=== PATIENT | male | born 2000 | race Caucasian/White ===

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

== ENCOUNTER → 2021-06-03 | Outpatient (REF) | payer OTHER | LOC: M WUC 20:09 | PROVIDERS: ATTEND Physician Assistant | DX: J02.9 Acute pharyngitis, unspecified (principal) ==

== ENCOUNTER 2021-08-08 17:36 | Emergency (ER) | payer BC, OTHER ==
[~2021-08-08] VITALS: Ht 177.8 cm; Wt 88.7 kg
[2021-08-08 17:37] VITALS: BP 145/86
--- OUTSIDE RECORDS SUMMARY | 2021-08-08 17:45 | CCD | Continuity of Care Document ---
Author Author Omar MUNGUIA Organization Unknown Address [address] [place] [address] Phone [phone] Problems Description No Information Available Social History Type Date Description Comments Sex Unknown ETOH Use Rarely consumes alcohol Tobacco Use Start: Unknown daily marijuana smoker Tobacco Use Start: Unknown Patient Currently Vapes 5% Allergies, Adverse Reactions, Alerts Description No Known Drug Allergies Medications Description No Active Medications Immunizations Description No Information Available Vital Signs Date Vital Result Comment 06/03/2021 1:40pm BP Systolic 111 mmHg BP Diastolic 64 mmHg Heart Rate 62 /min Respiratory Rate 14 /min O2 % BldC Oximetry 98 % Body Temperature 98.0 F Weight 195.00 lb Height 72 inches 6'0" BMI (Body Mass Index) 26.4 kg/m2 Pain Level 0 Results Test Acquired Date Facility Test Result H/L Range Note Laboratory test finding 06/03/2021 [facility] [address] [place] [address] [id number] [phone] Throat Culture <pending> Procedures Date Code Description Status 06/03/2021 [address]649 Office/Outpatient [facility] 30 -44 Minutes Completed Medical Devices Description No Information Available Encounters Type Date Location Provider Dx Diagnosis Office Visit 06/03/2021 1:00p Main Office NATALIE Brown J02 .9 Acute pharyngitis, unspecified Assessments Date Code Description Provider 06/03/2021 J02.9 Acute pharyngitis, unspecified M NATALIE Lopez Plan of Treatment No Information Available Functional Status Description No Information Available Mental Status Description No Information Available Referrals Description No Information Available
--- OUTSIDE RECORDS SUMMARY | 2021-08-08 17:45 | CCD ---
Author Author [facility] Organization [facility] Address Unknown Phone Unavailable Care Team Providers Care Food Safety Officer Name Role Phone Miladys DESAI MD Unavailable Unavailable Miladys DESAI MD Unavailable Unavailable Miladys DESAI MD Unavailable Unavailable Miladys DESAI MD Unavailable Unavailable Miladys DESAI MD Unavailable Unavailable Miladys DESAI MD Unavailable Unavailable Miladys DESAI MD Unavailable Unavailable Miladys DESAI MD Unavailable Unavailable Miladys DESAI MD Unavailable Unavailable Miladys DESAI MD Unavailable Unavailable Miladys DESAI MD Unavailable Unavailable Miladys DESAI MD Unavailable Unavailable Miladys DESAI MD Unavailable Unavailable Miladys DESAI MD Unavailable Unavailable Miladys DESAI MD Unavailable Unavailable Miladys DESAI MD Unavailable Unavailable Miladys DESAI MD Unavailable Unavailable Miladys DESAI MD Unavailable Unavailable Miladys DESAI MD Unavailable Unavailable Miladys DESAI MD Unavailable Unavailable Miladys DESAI MD Unavailable Unavailable Miladys DESAI MD Unavailable Unavailable Miladys DESAI MD Unavailable Unavailable Miladys DESAI MD Unavailable Unavailable LETTIERE, A DAR PA Unavailable Unavailable LETTIERE, A DAR PA Unavailable Unavailable LETTIERE, A DAR PA Unavailable Unavailable LETTIERE, A DAR PA Unavailable Unavailable LETTIERE, A DAR PA Unavailable Unavailable LETTIERE, A DAR PA Unavailable Unavailable LETTIERE, A DAR PA Unavailable Unavailable LETTIERE, A DAR PA Unavailable Unavailable LETTIERE, A DAR PA Unavailable Unavailable LETTIERE, A DAR PA Unavailable Unavailable LETTIERE, A DAR PA Unavailable Unavailable LETTIERE, A DAR PA Unavailable Unavailable LETTIERE, A DAR PA Unavailable Unavailable LETTIERE, A DAR PA Unavailable Unavailable LETTIERE, A DAR PA Unavailable Unavailable LETTIERE, A DAR PA Unavailable Unavailable LETTIERE, A DAR PA Unavailable Unavailable LETTIERE, A DAR PA Unavailable Unavailable LETTIERE, A DAR PA Unavailable Unavailable LETTIERE, A DAR PA Unavailable Unavailable LETTIERE, A DAR PA Unavailable Unavailable LETTIERE, A DRA PA Unavailable Unavailable LETTIERE, A DAR PA Unavailable Unavailable LETTIERE, A ADR PA Unavailable Unavailable LETTIERE, A DAR PA Unavailable Unavailable LETTIERE, A DAR PA Unavailable Unavailable LETTIERE, A DAR PA Unavailable Unavailable LETTIERE, A DAR PA Unavailable Unavailable LETTIERE, A DAR PA Unavailable Unavailable LETTIERE, A DAR PA Unavailable Unavailable LETTIERE, A DAR PA Unavailable Unavailable Mikaela Pedersen Unavailable AlpeshFariba Unavailable Re-disclosure Warning The records that you are about to access may contain information from federally-assisted alcohol or drug abuse programs. If such information is present, then the following federally mandated warning applies: This information has been disclosed to you from records protected by federal confidentiality rules (42 CFR part 2). The federal rules prohibit you from making any further disclosure of this information unless further disclosure is expressly permitted by the written consent of the person to whom it pertains or as otherwise permitted by 42 CFR part 2. A general authorization for the release of medical or other information is NOT sufficient for this purpose. The Federal rules restrict any use of the information to criminally investigate or prosecute any alcohol or drug abuse patient.The records that you are about to access may contain highly sensitive health information, the redisclosure of which is protected by Article 27-F of the [facility] Public Health law. If you continue you may have access to information: Regarding HIV / AIDS; Provided by facilities licensed or operated by the [facility] Office of Mental Health; or Provided by the [facility] Office for People With Developmental Disabilities. If such information is present, then the following [facility] mandated warning applies: This information has been disclosed to you from confidential records which are protected by state law. State law prohibits you from making any further disclosure of this information without the specific written consent of the person to whom it pertains, or as otherwise permitted by law. Any unauthorized further disclosure in violation of state law may result in a fine or snf sentence or both. A general authorization for the release of medical or other information is NOT sufficient authorization for further disc losure. Encounters Encounter Providers Location Date Indications Data Source(s ) Outpatient Attender: SENDY DESAI MD 06/29 05:35:30 PM EDT - 06/29/2021 07:29:46 PM EDT Lis[facility] ([facility] ) Outpatient Attender: DAR nguyen 06/03/2021 01:00:00 PM EDT [facility] ([facility]) Extended Individual Psychotherapy - 45 min Attender: Franchesca Betts [facility] Alf 12/01/2020 01:00:00 AM EST - 12/01/2020 01:00:00 AM EST [facility] ([facility]) Attender: Fariba Betts 12/01/2020 12:00:00 AM EST [facility] ([facility]) Attender: Mikaela Pedersen 11/23/2020 12:00:[address] [facility] ([facility]) Alf - Case Management Attender: Mikaela Pedersen [facility] J ail 11/22/2020 12:15:00 PM EST - 11/22/2020 12:15:00 PM EST [facility] ([facility]) Brief Individual Psychotherapy - 30 min Attender: Mikaela johnosn [facility] Alf 11/14/2020 09:00:00 AM EST - 11/14/2020 09:00:00 AM EST [facility] ([facility]) Attender: Mikaela Pedersen 11/14/2020 12:00:[address] [facility] ([facility]) Extended Individual Psychotherapy - 45 min [facility] 10/23/2020 01:45:00 AM EST - 10/23/2020 01:45:00 AM EST [facility] ([facility]) Attender: Mikaela Pedersen 10/23/2020 12:00:[address] [facility] ([facility]) Medications No Information Insurance Providers Payer name Policy type / Coverage type Policy ID Covered democrat ID Covered democrat's relationship to hernandez Policy Hernandez Plan Information [employer] [id number] Self [id number] [facility] COMMUNITY PLAN [facility] [id number] SP [id number] [facility] [id number] SP [id number] [facility] [id number] FA2 [id number] [facility] [id number] FA2 [id number] [facility] [id number] FA2 [id number] [facility] PUB HLTH [id number] SP [id number] [facility] O [id number] C [id number] [facility] [id number] FA2 [id number] [facility] PHY [id number] FA2 [id number] Problems, Conditions, and Diagnoses Code Display Name Description Problem Type Effective Dates Data Source(s) 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 11/23/2020 12:00:00 AM EST [facility] ([facility]) Surgeries/Procedures Procedure Description Date Indications Data Source(s) OFFICE OUTPATIENT NEW 30 MINUTES 06/03/2021 12:00:00 A M EDT [facility] ([facility], [facility]) Extended Individual Psychotherapy - 45 min 12/01/2020 12:00:00 AM EST - 12/01/2020 12:00:00 AM EST [facility] ([facility]) Extended Individual Psychotherapy - 45 min 12:00:00 AM EST [facility] ([facility]) Alf - Case Management 11/23/2020 12:00: 00 AM EST - 11/23/2020 12:00:00 AM EST [facility] ([facility]) Alf - Case Management 11/22/2020 12:00:00 AM EST [facility] ([facility]) Brief Individual Psychotherapy - 30 min 11/14/2020 12:00:00 AM EST - 11/14/2020 12:00:00 AM EST [facility] ([facility]) Brief Individual Psychotherapy - 30 min 11/14/2020 12: 00:00 AM EST [facility] ([facility]) Extended Individual Psychotherapy - 45 min 10/23/2020 12:00:00 AM EST - 10/23/2020 12:00:00 AM EST [facility] ([facility]) Extended Individual Psychotherapy - 45 min 12:00:00 AM EST [facility] ([facility]) Results ID Date Data Source [id number] 07/06/2021 02:30:00 PM EDT [facility] Name Value Range Interpretation Code Description Data Zuleika rce(s) Supporting Document(s) SARS-CoV-2 RNA Resp Ql REBECCA+probe NOT DETECTED [facility] This lab was ordered by ZULY okeefe and reported by ZULY Breen. ID Date Data Source [id number] 06/03/2021 01:54:00 PM EDT [facility] ([facility], [facility]) Name Value Range Interpretation Code Description Data Zuleika rce(s) Supporting Document(s) Bacteria identified in Throat by Culture Laboratory test result [facility] ([facility], [facility]) see progress note Procedure Social History Code Duration Value Status Description Data Source(s ) Smoking 12/01/2020 12:00:00 AM EST Unknown if ever smoked comp leted Unknown if ever smoked [facility] ([facility]) Smoking 11/23/2020 12:00:00 AM EST Unknown if ever smoked comp leted Unknown if ever smoked [facility] ([facility]) Smoking 11/14/2020 12:00:00 AM EST Unknown if ever smoked comp leted Unknown if ever smoked [facility] ([facility]) Smoking 10/23/2020 12:00:00 AM EST Unknown if ever smoked comp leted Unknown if ever smoked [facility] ([facility]) Vital Signs ID Date Data Source UNK Name Value Range Interpretation Code Description Data Source(s) Body temperature 98.0 [degF] 98.0 [degF] [facility]) Body weight 195.00 [lb_av] 195.00 [lb_av] MED[facility] T ([facility], [facility]) Body height 72 [in_i] 72 [in_i] [facility]) 6'0" Body mass index (BMI) [Ratio] 26.4 kg/m2 26.4 k g/m2 [facility] ([facility], [facility]) Systolic blood pressure 111 mm[Hg] 111 mm[Hg] [facility], [facility]) Diastolic blood pressure 64 mm[Hg] 64 mm[Hg] [facility] ([facility], [facility]) Heart rate 62 /min 62 /min [facility] ([facility], [facility]) Respiratory rate 14 /min 14 /min [facility] ( [facility], [facility]) Oxygen saturation in Arterial blood by Pulse oximetry 98 % 98 % [facility] ([facility], [facility]) Systolic blood pressure 125 mm[Hg] 125 mm[Hg] [facility] Diastolic blood pressure 71 mm[Hg] 71 mm[Hg] [facility] ([facility]) Heart rate 63 /min 63 /min [facility] ([facility]) Respiratory rate 18 /min 18 /min [facility] ( [facility]) Body temperature 97.8 [degF] 97.8 [degF] [facility] ([facility]) Body weight 169.00 [lb_av] 169.00 [lb_av] MED[facility] T ([facility])
--- OUTSIDE RECORDS SUMMARY | 2021-08-08 17:45 | CCD | Continuity of Care Document ---
Author Author Omar MUNGUIA Organization Unknown Address [address] [place] [phone] Phone [phone] Problems Description No Information Available Social History [...] H/L Range Note Laboratory test finding 06/03/2021 [facility] [address] [place] [address] [id number] [phone] Throat Culture <pending> Procedures Date Code Description Status 06/03/2021 [address] Office/Outpatient [facility] 30 -44 Minutes Completed Medical Devices Description [...]
--- OUTSIDE RECORDS SUMMARY | 2021-08-08 17:45 | CCD | Continuity of Care Document ---
Author Author Omar MUNGUIA Organization Unknown Address [address] [place] [phone] Phone [phone] Problems Description No Information Available Social History [...] H/L Range Note Laboratory test finding 06/03/[address] [id number] [phone] Throat Culture FULL REPORT IN L <SEE NOTE> Normal 1, 2 1 see progress note 2 FULL REPORT IN LAB NOTES (eC W and [facility]). NORMAL LUIS PRESENT ORGANISM 1: STREPTOCOCCUS GROUP C QUANTITY OF GROWTH HEAVY ORGANISM 1: STREPTOCOCCUS GROUP C Procedures Date Code Description Status 06/03/2021 [address]15[address] Office/Outpatient [facility] 30 -44 Minutes Completed Medical Devices Description [...]
[2021-08-08] MEDS ORDERED: ALPRAZolam 0.25 MG TAB PO ONE (18:50)
[2021-08-08] MEDS ORDERED: FLUORESCEIN OPHTH 1 MG STRIP OD ONE (18:50)
[2021-08-08] MEDS ORDERED: TETRACAINE 0.5% OPHTH SOLN 4ML OD ONE (18:50)
--- OUTSIDE RECORDS SUMMARY | 2021-08-08 19:37 | CCD ---
Author Author [facility] Organization [facility] Address Unknown Phone Unavailable Care Team Providers Care Draw Machine Operator Name Role Phone Miladys DESAI MD Unavailable [...] is protected by Article 27-F of the [facility] Public Health law. If you continue you may have access to information: Regarding HIV / AIDS; Provided by facilities licensed or operated by the [facility] Office of Mental Health; or Provided by the [facility] Office for People With Developmental Disabilities. If such information is present, then the following [facility] mandated warning applies: This information has been [...] law may result in a fine or fdc sentence or both. A general authorization for the release of medical or other information is NOT sufficient authorization for further disc losure. Encounters Encounter Providers Location Date Indications Data Source(s ) Outpatient Attender: SENDY DESAI MD 06/29 05:35:30 PM EDT - 06/29/2021 07:29:46 PM EDT [facility] ([facility] ) Outpatient Attender: DAR nguyen 06/03/2021 01:00:00 PM EDT [facility] ([facility]) Extended Individual Psychotherapy - 45 min Attender: Franchesca Betts [facility] 12/01/2020 01:00:00 AM EST - 12/01/2020 01:00:00 AM EST [facility] ([facility]) Attender: Fariba Betts 12/01/2020 12:00:00 AM EST [facility] ([facility]) Attender: Mikaela Pedersen 11/23/2020 12:00:[address] [facility] ([facility]) Nursing Home - Case Management Attender: Mikaela Pedersen [facility] J ail 11/22/2020 12:15:00 PM EST - 11/22/2020 12:15:00 PM EST [facility] ([facility]) Brief Individual Psychotherapy - 30 min Attender: Mikaela johnson [facility] 11/14/2020 09:00:00 AM EST - 11/14/2020 09:00:00 AM EST [facility] ([facility]) Attender: Mikaela Pedersen 11/14/2020 12:00:[address] [facility] ([facility]) Extended Individual Psychotherapy - 45 min [facility] 10/23/2020 01:45:00 AM EST - 10/23/2020 01:45:00 AM EST [facility] ([facility]) Attender: Mikaela Pedersen 10/23/2020 12:00:[address] [facility] ([facility]) Medications No Information Insurance Providers Payer name Policy type / Coverage type Policy ID Covered libertarian ID Covered libertarian's relationship to hernandez Policy Hernandez Plan Information [employer] [id number] Self [id number] [facility] COMM[facility] PLAN [facility] [id number] SP [id number] [facility] [id number] SP [id number] [facility] [id number] FA2 [id number] [facility] [id number] FA2 [id number] [facility] [id number] FA2 [id number] 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 11/23/2020 12:00:00 AM EST [facility] ([facility]) Surgeries/Procedures Procedure Description Date Indications Data Source(s) OFFICE OUTPATIENT NEW 30 MINUTES 06/03/2021 12:00:00 A M EDT [facility] ([facility], [facility]) Extended Individual Psychotherapy - 45 min 12/01/2020 12:00:00 AM EST - 12/01/2020 12:00:00 AM EST [facility] ([facility]) Extended Individual Psychotherapy - 45 min 12:00:00 AM EST [facility] ([facility]) Nursing Home - Case Management 11/23/2020 12:00: 00 AM EST - 11/23/2020 12:00:00 AM EST [facility] ([facility]) Nursing Home - Case Management 11/22/2020 12:00:00 AM EST [facility] ([facility]) Brief Individual Psychotherapy - 30 min 11/14/2020 12:00:00 AM EST - 11/14/2020 12:00:00 AM EST [facility] ([facility]) Brief Individual Psychotherapy - 30 min 11/14/2020 12: 00:00 AM EST [facility] ([facility]) Extended Individual Psychotherapy - 45 min 10/23/2020 12:00:00 AM EST - 10/23/2020 12:00:00 AM EST [facility] ([facility]) Extended Individual Psychotherapy - 45 min 12:00:00 AM EST [facility] ([facility]) Results ID Date Data Source [id number] 07/06/2021 02:30:00 PM EDT [facility] Name Value Range Interpretation Code Description Data Zuleika rce(s) Supporting Document(s) SARS-CoV-2 RNA Resp Ql REBECCA+probe NOT DETECTED [facility] This lab was ordered by ZULY okeefe and reported by ZULY Breen. ID Date Data Source [id number] 06/03/2021 01:54:00 PM EDT [facility] ([facility], [facility]) Name Value Range Interpretation Code Description Data Zuleika rce(s) Supporting Document(s) Bacteria identified in Throat by Culture Laboratory test result [facility] ([facility], [facility]) see progress note Procedure Social History Code Duration Value Status Description Data Source(s ) Smoking 12/01/2020 12:00:00 AM EST Unknown if ever smoked comp leted Unknown if ever smoked [facility] ([facility]) Smoking 11/23/2020 12:00:00 AM EST Unknown if ever smoked comp leted Unknown if ever smoked [facility] ([facility]) Smoking 11/14/2020 12:00:00 AM EST Unknown if ever smoked comp leted Unknown if ever smoked [facility] ([facility]) Smoking 10/23/2020 12:00:00 AM EST Unknown if ever smoked comp leted Unknown if ever smoked [facility] ([facility]) Vital Signs ID Date Data Source UNK Name Value Range Interpretation Code Description Data Source(s) Body temperature 98.0 [degF] 98.0 [degF] [facility]) Body weight 195.00 [lb_av] 195.00 [lb_av] MED[facility] T ([facility], [facility]) Body height 72 [in_i] 72 [in_i] [facility] ([facility], [facility]) 6'0" Systolic blood pressure 111 mm[Hg] 111 mm[Hg] M [facility]ENT ([facility], [facility]) Diastolic blood pressure 64 mm[Hg] 64 mm[Hg] [facility] ([facility], [facility]) Heart rate 62 /min 62 /min [facility] ([facility], [facility]) Respiratory rate 14 /min 14 /min [facility] ( [facility], [facility]) Oxygen saturation in Arterial blood by Pulse oximetry 98 % 98 % [facility] ([facility]) Body mass index (BMI) [Ratio] 26.4 kg/m2 26.4 k g/m2 [facility] ([facility], [facility]) Systolic blood pressure 125 mm[Hg] 125 mm[Hg] [facility] Diastolic blood pressure 71 mm[Hg] 71 mm[Hg] [facility] ([facility]) Heart rate 63 /min 63 /min [facility] ([facility]) Respiratory rate 18 /min 18 /min [facility] ( [facility]) Body temperature 97.8 [degF] 97.8 [degF] [facility] Body weight 169.00 [lb_av] 169.00 [lb_av] MED[facility] T ([facility])
== END 2021-08-08 19:30 | disposition home or self-care (01) ==
LOC: M ED 17:36
DX: S01.111A Laceration without foreign body of right eyelid and periocular area, initial encounter (principal); S05.11XA Contusion of eyeball and orbital tissues, right eye, initial encounter; S09.93XA Unspecified injury of face, initial encounter; Z53.9 Procedure and treatment not carried out, unspecified reason; W22.8XXA Striking against or struck by other objects, initial encounter; Y92.099 Unspecified place in other non-institutional residence as the place of occurrence of the external cause; Y93.89 Activity, other specified; Y99.9 Unspecified external cause status

== ENCOUNTER → 2021-10-18 | Outpatient (CLI) | payer BC, OTHER | LOC: M LABSMTC 11:09 | PROVIDERS: ATTEND Pediatrics | DX: Z20.822 Contact with and (suspected) exposure to COVID-19 (principal) | CPT/HCPCS: C9803; U0003 ==